=== PATIENT | female | born 1990 | race Caucasian/White ===

== ENCOUNTER 2018-05-01 18:06 | Inpatient (IN) | payer OTHER ==
[2018-05-01] MEDS: LACTATED RINGER'S 1,000 ML IV ×3 (19:22→22:59)
[2018-05-01 19:24] LABS: ADD MAN DIFF? NO
[2018-05-01 19:30] LABS: BASOPHIL # 0.1 10^3/ul (0.0-0.1); BASOPHILS % 0.5 % (0.0-2.0); EOSINOPHILS % 0.3 % (0.0-7.0); HEMATOCRIT 40.7 % (37.0-47.0); HEMOGLOBIN 14.4 g/dl (12.0-16.0); LYMPHOCYTES # 2.1 10^3/ul (0.8-2.9); LYMPHOCYTES % 19.2 % (15.0-51.0); MEAN CORPUSCULAR HEMOGLOBIN 31.6 pg (29.0-33.0); MEAN CORPUSCULAR HGB CONC 35.4 g/dl (32.0-37.0); MEAN CORPUSCULAR VOLUME 89.3 fl (82.0-101.0); MEAN PLATELET VOLUME 10.6 fl (7.4-10.4); MONOCYTE # 0.5 10^3/ul (0.3-0.9); MONOCYTES % 4.2 % (0.0-11.0); NEUTROPHIL # 8.2 10^3/ul (1.6-7.5); NEUTROPHILS % 75.1 % (39.0-77.0); PLATELET COUNT 187 10^3/UL (140-415); RED BLOOD COUNT 4.56 10^6/ul (4.20-5.40); RED CELL DISTRIBUTION WIDTH 12.4 % (11.5-14.5)
[2018-05-01] MEDS ORDERED: MISOPROSTOL 200 MCG TAB PR ×2 (19:30→21:30)
[2018-05-01] MEDS ORDERED: CARBOPROST 250 MCG INJ IM (19:30)
[2018-05-01] MEDS ORDERED: OXYTOCIN 30 UNITS/LR 500 ML IV (19:30)
[2018-05-01 19:51] LABS: INR 0.91; PROTIME 12.3 Sec (11.9-14.9)
[2018-05-01 19:52] LABS: PARTIAL THROMBOPLASTIN TIME 28.7 Sec (25.0-35.0)
[2018-05-01 20:39] LABS: HEPATITIS B SURFACE ANTIGEN NEGATIVE (NEGATIVE)
[2018-05-01] MEDS ORDERED: ONDANSETRON 4 MG INJ (21:03)
[2018-05-01] MEDS ORDERED: CITRIC ACID/SODIUM CITRATE 15 ML CUP (21:04)
[2018-05-01] MEDS: CEFAZOLIN 2 GM/50 ML (PMX) 50 ML IV (21:12)
[2018-05-01] MEDS: ONDANSETRON 4 MG INJ IV (21:16)
[2018-05-01] MEDS: CITRIC ACID/SODIUM CITRATE 15 ML CUP PO (21:16)
[2018-05-01] MEDS ORDERED: FENTAnyl 50 MCG/ML VIAL (21:25)
[2018-05-01] MEDS ORDERED: morphine SULFATE/PF (10 MG/10 ML) INJ (21:26)
[2018-05-01] MEDS ORDERED: METOCLOPRAMIDE 10 MG INJ (21:26)
[2018-05-01] MEDS ORDERED: BUPIVACAINE 0.75%/DEXT (SPINAL) 2 ML INJ (21:26)
[2018-05-01] MEDS ORDERED: OXYTOCIN 10 UNIT INJ (21:26)
[2018-05-01] MEDS ORDERED: NA PHOSPHATE/BIPHOS 133 ML ENEMA PR (21:30)
[2018-05-01] MEDS ORDERED: NALBUPHINE HCL (10 MG/1 ML) INJ IV (22:00)
[2018-05-01] MEDS ORDERED: LABETALOL HCL 20MG INJ IV (22:00)
[2018-05-01] MEDS ORDERED: hydrALAzine 20 MG INJ IV (22:00)
[2018-05-01] MEDS ORDERED: HYDROmorphONE 1 MG/5 ML IV SYRINGE IV ×3 (22:00)
[2018-05-01] MEDS ORDERED: MEPERIDINE 25 MG INJ IV (22:00)
[2018-05-01] MEDS ORDERED: NALOXONE (0.4 MG/ML) INJ IV (22:00)
[2018-05-01] MEDS ORDERED: OXYCODONE/ACETAMINOPHEN (5/325) TAB PO ×2 (22:00)
[2018-05-01] MEDS ORDERED: EPHEDrine SULFATE 50 MG/5 ML SYG IV (22:00)
[2018-05-01] MEDS ORDERED: DIPHENHYDRAMINE 50 MG INJ IV (22:00)
[2018-05-01] MEDS ORDERED: FENTAnyl 50 MCG/ML VIAL IV ×3 (22:00)
[2018-05-01] MEDS ORDERED: TRIMETHOBENZAMIDE 100 MG/ML VIAL IM ×2 (22:00)
[2018-05-01] MEDS ORDERED: morphine 2 MG INJ IV ×2 (22:00)
[2018-05-01] MEDS ORDERED: IPRATROPIUM (NEB) 0.5 MG/2.5 ML AMP HHN (22:00)
[2018-05-01] MEDS ORDERED: ONDANSETRON 4 MG INJ IV ×2 (22:00)
[2018-05-01] MEDS ORDERED: ALBUTEROL 0.083% (NEB) 2.5 MG/3 ML AMP HHN (22:00)
[2018-05-01] MEDS ORDERED: MIDAZOLAM 1 MG/ML 2 ML INJ IV (22:00)
[2018-05-01] MEDS: OXYTOCIN 30 UNITS/LR 500 ML IV (22:59)
[2018-05-01] MEDS: METHYLERGONOVINE 0.2 MG INJ IM (23:09)
[2018-05-02] MEDS: KETOROLAC 30 MG INJ IV ×4 (00:56→20:52)
[2018-05-02] MEDS: LACTATED RINGER'S 1,000 ML IV ×3 (03:04→19:46)
[2018-05-02] MEDS: IBUPROFEN 600 MG TAB PO ×4 (06:00→18:00)
[2018-05-02 08:52] LABS: ADD MAN DIFF? NO
[2018-05-02] MEDS: SENNA/DOCUSATE NA (8.6MG/50MG) TAB PO ×2 (08:54→22:04)
[2018-05-02 08:55] LABS: BASOPHILS % 0.3 % (0.0-2.0); EOSINOPHILS # 0.1 10^3/ul (0.0-0.5); EOSINOPHILS % 0.6 % (0.0-7.0); HEMATOCRIT 33.2 % (37.0-47.0); HEMOGLOBIN 11.7 g/dl (12.0-16.0); LYMPHOCYTES # 1.8 10^3/ul (0.8-2.9); LYMPHOCYTES % 17.7 % (15.0-51.0); MEAN CORPUSCULAR HEMOGLOBIN 31.6 pg (29.0-33.0); MEAN CORPUSCULAR HGB CONC 35.2 g/dl (32.0-37.0); MEAN CORPUSCULAR VOLUME 89.7 fl (82.0-101.0); MEAN PLATELET VOLUME 10.9 fl (7.4-10.4); MONOCYTE # 0.5 10^3/ul (0.3-0.9); MONOCYTES % 5.3 % (0.0-11.0); NEUTROPHIL # 7.5 10^3/ul (1.6-7.5); NEUTROPHILS % 75.6 % (39.0-77.0); PLATELET COUNT 147 10^3/UL (140-415); RED CELL DISTRIBUTION WIDTH 12.3 % (11.5-14.5)
[2018-05-02 08:55] LABS: WHITE BLOOD COUNT 9.9 10^3/ul (4.8-10.8)
[2018-05-02] MEDS: DIPHENHYDRAMINE 50 MG INJ IV (11:17)
[2018-05-02 15:30] LABS: RAPID PLASMA REAGIN NONREACTIVE (NR)
[2018-05-02] MEDS: LANOLIN 7 GM TUBE TOP (19:56)
[2018-05-02] MEDS: OXYCODONE/ACETAMINOPHEN (5/325) TAB PO (22:04)
[2018-05-03] MEDS: OXYCODONE/ACETAMINOPHEN (5/325) TAB PO ×3 (02:04→13:48)
[2018-05-03] MEDS: IBUPROFEN 600 MG TAB PO ×4 (05:27→17:56)
[2018-05-03] MEDS: SENNA/DOCUSATE NA (8.6MG/50MG) TAB PO ×2 (08:22→21:03)
[2018-05-04] MEDS: IBUPROFEN 600 MG TAB PO ×3 (00:04→12:50)
[2018-05-04] MEDS: OXYCODONE/ACETAMINOPHEN (5/325) TAB PO (07:00)
[2018-05-04] MEDS: MEASLES,MUMPS,RUBELLA VACCINE INJ SC* (09:00)
[2018-05-04] MEDS: DIPHTH/TET/ACEL PERTUSS (ADULT) 0.5 ML VIAL IM* (09:00)
[2018-05-04] MEDS: SENNA/DOCUSATE NA (8.6MG/50MG) TAB PO (10:20)
== END 2018-05-04 16:29 | disposition home or self-care (01) | DRG 766 ==
LOC: PP1 05-02 01:15 → L-D 18:06
PROVIDERS: Specialist
PROC: 10D00Z1 Extraction of Products of Conception, Low, Open Approach (ICD-10-PCS; principal; 2018-05-01 20:00)
DX: O34.219 Maternal care for unspecified type scar from previous cesarean delivery (principal); Z3A.39 39 weeks gestation of pregnancy; Z37.0 Single live birth; G97.1 Other reaction to spinal and lumbar puncture; Y84.4 Aspiration of fluid as the cause of abnormal reaction of the patient, or of later complication, without mention of misadventure at the time of the procedure
CPT/HCPCS: 85025; 85610; 85730; 86592; 86850; 86900; 86901; 87340; 99464